=== PATIENT | male | born 1960 | race Caucasian/White ===

== ENCOUNTER 2017-08-13 13:06 | Emergency (ER) | payer OTHER ==
--- NOTE | 2017-08-13 14:41 | ED ---
Throat Pain/Nasal Congestion - HPI Summary HPI Summary: Pt here w/ Lt eye lid swelling x 2 weeks but more swollen, red and tender past few days - has tried hot tea bags twice over past 2 days. Has not taken anything else for pain as he reports it's 2/10 - more annoying than painful. Denies fever, chills, visual change, pain with ocular movement, FB sensation and no injury leading up to this. Just came in today to see if there is anything more he can do about this. 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 - Allergies/Home Medications Allergies/Adverse Reactions: Allergies Allergy/AdvReac Type Severity Reaction Status Date / Time No Known Allergies Allergy Verified 08/13/17 13:10 Home Medications: Home Medications NK [No Home Medications Reported] 08/13/17 [History Confirmed 08/13/17] PMH/Surg Hx/FS Hx/Imm Hx Previously Healthy: Yes Endocrine/Hematology History: Denies: Hx Diabetes, Hx Thyroid Disease, Autoimmune Disease Cardiovascular History: Denies: Hx Congestive Heart Failure, Hx Deep Vein Thrombosis, Hx Hypertension , Hx Myocardial Infarction, Hx Pacemaker/ICD Respiratory History: Denies: Hx Asthma, Hx Chronic Obstructive Pulmonary Disease (COPD), Hx Lung Cancer, Hx Pneumonia, Hx Pulmonary Embolism GI History: Denies: Hx Gall Bladder Disease, Hx Gastrointestinal Bleed, Hx Ulcer, Hx Urosepsis History: Denies: Hx Kidney Stones, Hx Renal Disease Neurological History: Denies: Hx Dementia, Hx Migraine, Hx Seizures, Hx Transient Ischemic Attacks (TIA) Psychiatric History: Denies: Hx Anxiety, Hx Depression, Hx Schizophrenia, Hx Bipolar Disorder - Surgical History Surgery Procedure, Year, and Place: kidney surgery after trauma age 5 Infectious Disease History: No Infectious Disease History: Denies: Hx Clostridium Difficile, Hx Hepatitis, Hx Human Immunodeficiency Virus (HIV), Hx of Known/Suspected MRSA, Hx Shingles, Hx Tuberculosis, Hx Known/ Suspected VRE, Hx Known/Suspected VRSA, History Other Infectious Disease, Traveled Outside the [place] in Last 30 Days - Family History Known Family History: Positive: None - Social History Occupation: Employed Full-time - cook at [employer] Lives: With Family Alcohol Use: Weekly Alcohol Amount: 3-4 beers a week Hx Substance Use: No Substance Use Type: Reports: None Hx Tobacco Use: Yes Smoking Status (MU): Light Every Day Tobacco Smoker Type: Cigarettes Review of Systems Constitutional: Negative Negative: Fever, Chills, Fatigue Eyes: Negative Negative: Photophobia, Blurred Vision, Diplopia, Drainage, Erythema ENT: Negative Negative: Sore Throat, Ear Ache, Nasal Discharge Positive: no symptoms reported Musculoskeletal: Negative Skin: Other - Lt eyelid swelling Neurological: Negative Psychological: Normal All Other Systems Reviewed And Are Negative: Yes Physical Exam Triage Information Reviewed: Yes Vital Signs On Initial Exam: Initial Vitals Temp Pulse Resp BP Pulse Ox 98.3 F 75 14 138/84 97 08/13/17 13:08 08/13/17 13:08 08/13/17 13:08 08/13/17 13:08 08/13/17 13:08 Vital Signs Reviewed: Yes Appearance: Positive: Well-Appearing, No Pain Distress, Well-Nourished Skin: Positive: Warm, Skin Color Reflects Adequate Perfusion, Dry - Lt superior palpebra with erythema and focal well-defined swelling at the palpebral margin - subtle pustule is forming, no drainage; underlay to appears healthy; no overlying lesions Head/Face: Positive: Normal Head/Face Inspection Eyes: Positive: Normal, EOMI, RIANNA, Conjunctiva Clear. Negative: Conjunctiva Inflammed, Discharge ENT: Positive: Normal ENT inspection, Hearing grossly normal, Pharynx normal Neck: Positive: Supple, Nontender, No Lymphadenopathy Respiratory/Lung Sounds: Positive: Breath Sounds Present Musculoskeletal: Positive: Normal, Strength/ROM Intact Neurological: Positive: Normal, Sensory/Motor Intact, Alert, Oriented to Person Place, Time, CN Intact II-III Psychiatric: Positive: Normal Diagnostics - Vital Signs Vital Signs Temp Pulse Resp BP Pulse Ox 08/13/17 13:08 98.3 F 75 14 138/84 97 - Laboratory Lab Statement: Any lab studies that have been ordered have been reviewed, and results considered in the medical decision making process. EENT Course/Dx - Course Course Of Treatment: UTD recommends 2 weeks of warm compresses QID - since he's already had this for 2 weeks, but hasn't been applying warm compresses, will have him implement this recommendation for 1 week and f/u w/ ophthalmology after if no resolve. Also reviewed other supportive care and danger s/sx of when to return to ED. Pt and partner agree w/ plan. - Diagnoses Provider Diagnoses: Hordeolum externum left upper eyelid Discharge - Sign-Out/Discharge Documenting (check all that apply): Discharge/Admit/Transfer - Discharge Plan Condition: Stable Disposition: HOME Patient Education Materials: Neel (ED) Referrals: Gal Cano MD [Medical Doctor] - Additional Instructions: Apply warm compresses to eyelid 4 x day. You may also take ibuprofen with food as needed for pain/swelling. If your eyelid does not drain over the next week, call eye doctor for further intervention (contact information provided here). If abscess starts to drain, keep area clean by gently washing, rinsing and drying. If contents get into your eye, rinse with saline water. - Billing Disposition and Condition Condition: STABLE Disposition: HOME
[2017-08-13 14:52] VITALS: BP 147/86
== END 2017-08-13 14:51 | disposition home or self-care (01) ==
LOC: ED 13:06
DX: H00.014 Hordeolum externum left upper eyelid (principal); F17.210 Nicotine dependence, cigarettes, uncomplicated
CPT/HCPCS: 99281

== ENCOUNTER 2019-04-12 12:50 | Emergency (ER) | payer OTHER ==
--- NOTE | 2019-04-12 16:33 | UC ---
Truncal Trauma HPI - HPI Summary HPI Summary: 58-year-old male presents with complaints of right lateral chest wall pain after slipping and falling has morning at approximately 3:00 AM and striking the side of his chest on the edge of a bathtub. States he also hit the side of his right foot however the pain to his foot has since subsided. He denies fever , chills, shortness of breath, abdominal pain, nausea, vomiting, or hematuria. - History Of Current Complaint Chief Complaint: UCTrauma Stated Complaint: RIB INJURY Time Seen by Provider: 04/12/19 16:24 Hx Obtained From: Patient Pain Intensity: 6 - Allergies/Home Medications Allergies/Adverse Reactions: Allergies Allergy/AdvReac Type Severity Reaction Status Date / Time No Known Allergies Allergy Verified 04/12/19 13:43 PMH/Surg Hx/FS Hx/Imm Hx Previously Healthy: Yes - Denies significant PMH Other History Of: Negative For: HIV, Hepatitis B, Hepatitis C - Surgical History Surgical History: Yes Surgery Procedure, Year, and Place: left kidney surgery x2 after trauma age 5. left ankle - Family History Known Family History: Positive: Non-Contributory - Social History Occupation: Employed Full-time Lives: Alone Alcohol Use: Weekly Alcohol Amount: 3-4 beers a week Substance Use Type: None Smoking Status (MU): Heavy Every Day Tobacco Smoker Type: Cigarettes Review of Systems All Other Systems Reviewed And Are Negative: Yes Constitutional: Negative: Fever, Chills Respiratory: Positive: Other - See HPI. Negative: Shortness Of Breath Cardiovascular: Negative: Palpitations Gastrointestinal: Negative: Abdominal Pain, Vomiting, Nausea Genitourinary: Negative: Hematuria Musculoskeletal: Positive: Negative Neurological: Positive: Negative Is Patient Immunocompromised?: No Physical Exam - Summary Physical Exam Summary: GENERAL APPEARANCE: Well developed, well nourished, alert and cooperative, and appears to be in no acute distress. HEAD: Atraumatic. Normocephalic. NECK: Neck supple, non-tender. Full ROM CARDIAC: Normal S1 and S2. No S3, S4 or murmurs. Rhythm is regular. There is no peripheral edema, cyanosis or pallor. Extremities are warm and well perfused. Capillary refill is less than 2 seconds. Peripheral pulses intact. LUNGS: Tenderness to the posterior, lateral right chest wall with palpation. Mild ecchymosis noted. No crepitus. Clear to auscultation without rales, rhonchi , wheezing or diminished breath sounds. ABDOMEN: Positive bowel sounds. Soft, nondistended, nontender. No guarding or rebound. No masses or hepatosplenomegally. MUSKULOSKELETAL: ROM intact to all extremities. No joint erythema or tenderness. Normal muscular development. Normal gait. SKIN: Skin normal color, texture and turgor. Triage Information Reviewed: Yes Vital Signs: Initial Vital Signs Temp 98.2 F 04/12/19 13:39 Pulse 72 04/12/19 13:39 Resp 18 04/12/19 13:39 BP 134/82 04/12/19 13:39 Pulse Ox 98 04/12/19 13:39 Vital Signs Reviewed: Yes Diagnostics - Radiology No standard instances Radiology Interpretation Completed By: Radiologist Summary of Radiographic Findings: Order Information: RIBS RT UNI W/PA CH MIN 3 VWS. Indication: Right rib injury. 4 views of the right ribs and dual energy PA views demonstrate no mediastinal shift. Heart is of normal size and configuration. No pneumothorax is noted. There is suggestion of a nondisplaced fracture of the right sixth rib posterior laterally. IMPRESSION: Suggestion of nondisplaced fracture of the right sixth rib posteriorly. No pneumothorax is noted. Truncal Trauma Course/Dx - Course Course Of Treatment: 58-year-old male presents with complaints of right lateral chest wall pain after slipping and falling has morning at approximately 3:00 AM and striking the side of his chest on the edge of a bathtub. States he also hit the side of his right foot however the pain to his foot has since subsided. He denies fever , chills, shortness of breath, abdominal pain, nausea, vomiting, or hematuria. Afebrile. Vital signs stable. On exam patient had tenderness to the posterior , lateral right chest wall with palpation. Mild ecchymosis noted. No crepitus. Clear to auscultation without rales, rhonchi, wheezing or diminished breath sounds. Remainder of exam was unremarkable. [id number] urinalysis was normal. Rib and chest x-ray showed a nondisplaced fracture of the right sixth rib posteriorly. No pneumothorax was noted. Results reviewed with the patient. Recommending conservative treatment for right rib fracture including over-the- counter NSAIDs and cold therapy. I discussed deep breathing exercises with the patient and encouraged him to perform these every 1-2 hours while awake. He is to follow-up with his primary care provider in 3-5 days for recheck of symptoms. Anticipatory guidance and warning symptoms require immediate evaluation in the ER were reviewed with the patient. Verbalizes understanding and agrees with plan of care. - Differential Dx/Diagnosis Differential Diagnosis/HQI/PQRI: Chest Wall Contusion, Renal Trauma, Rib Fracture Provider Diagnosis: Closed traumatic nondisplaced fracture of one rib of right side Discharge ED - Sign-Out/Discharge Documenting (check all that apply): Patient Departure All imaging exams completed and their final reports reviewed: Yes - Discharge Plan Condition: Stable Disposition: HOME Patient Education Materials: Rib Fracture (ED) Forms: *Work Release Referrals: Elizabeth Puckett MD [Primary Care Provider] - 3 Days (Follow up in 3-5 days for recheck of symptoms.) Additional Instructions: The x-ray performed in the clinic today showed a nondisplaced fracture of the sixth right rib. The urine test was normal. Take ibuprofen (Advil, Motrin) or naproxen (Aleve) according to directions as needed for pain. Apply ice to the effected area for 15-20 minutes at least 4 times a day to help with pain and swelling. It is important that you perform the deep breathing exercises were discussed with you every 1-2 hours while awake to help prevent pneumonia. Follow-up with your primary care provider in 3-5 days for recheck of symptoms. Seek immediate medical attention in the emergency room if you develop a fever greater than 100.5 F, has severe chest pain that is not managed with the pain medication, have difficulty breathing, severe abdominal pain, persistent vomiting, or any worsening of symptoms. - Billing Disposition and Condition Condition: STABLE Disposition: Home
[2019-04-12 16:54] VITALS: BP 143/87
== END 2019-04-12 16:55 | disposition home or self-care (01) ==
LOC: UCEAST 12:50
DX: S22.31XA Fracture of one rib, right side, initial encounter for closed fracture (principal); F17.210 Nicotine dependence, cigarettes, uncomplicated; W01.198A Fall on same level from slipping, tripping and stumbling with subsequent striking against other object, initial encounter; Y92.9 Unspecified place or not applicable
CPT/HCPCS: 81003; 99211; G0463